=== PATIENT | male | born 1970 | race Caucasian/White ===

== ENCOUNTER 2018-11-30 23:33 | Emergency (ER) | payer SELFPAY ==
[~2018-11-30] VITALS: Ht 175.3 cm; Wt 79.4 kg
[2018-11-30 23:33] VITALS: BP 149/98
--- NOTE | 2018-11-30 23:35 | NUR ---
PT TO ER BB RA, PATIENT COMPLAINING OF ANXIETY. NO IMMEDIATE SIGNS OF DISTRESS NOTED. PT VITAL SIGNS STABLE. PT DENIES SI/HI. ADMITS TO USING OPI[facility] TODAY AND [facility]ETH YESTERDAY. PT ANSWERING ALL QUESTIONS APPROPRIATELY. WILL CONT TO MONITOR PT.
--- NOTE | 2018-12-01 00:05 | NUR ---
PT NO LONGER WANTING TO BE SEEN BY . Patient eloped from facility. ER notified.
== END 2018-12-01 00:15 | disposition left against medical advice (07) ==
LOC: ER 23:38
DX: F41.9 Anxiety disorder, unspecified (principal); M54.9 Dorsalgia, unspecified; G89.29 Other chronic pain; Z53.21 Procedure and treatment not carried out due to patient leaving prior to being seen by health care provider

== ENCOUNTER 2018-12-01 17:59 | Emergency (ER) | payer SELFPAY ==
[~2018-12-01] VITALS: Ht 175.3 cm; Wt 88.5 kg
[2018-12-01 18:18] VITALS: BP 160/100
--- NOTE | 2018-12-01 18:18 | NUR ---
PT MARLENE FROM [employer] OFFICE "HE'S BOTHERING PEOPLE OUTSIDE [employer] OFFICE" PT IS AAOX3, NOT IN RESPIRATORY DISTRESS, HOOKED TO MONITOR. KEPT RESTED AND COMFORTABLE, WILL CONTINUE TO MONITOR.
--- NOTE | 2018-12-01 18:27 | NUR ---
SEEN AND EXAMINED BY
--- NOTE | 2018-12-01 19:14 | NUR ---
Patient given written and verbal discharge instructions. Patient verbalizes understanding of instructions. Patient is ambulatory with steady gait. Refuses offer of care home placement. Patient given list of available shelters in surrounding area.
== END 2018-12-01 19:18 | disposition home or self-care (01) ==
LOC: ER 17:59
DX: E11.9 Type 2 diabetes mellitus without complications (principal); F10.20 Alcohol dependence, uncomplicated; I10 Essential (primary) hypertension; G89.29 Other chronic pain; Z60.2 Problems related to living alone; Y90.9 Presence of alcohol in blood, level not specified

== ENCOUNTER 2018-12-02 09:38 | Emergency (ER) | payer SELFPAY ==
[~2018-12-02] VITALS: Ht 180.3 cm; Wt 90.7 kg
--- NOTE | 2018-12-02 10:18 | NUR ---
ASSUME PT CARE. PT WALKED IN TO ED C/O BILAT FOOT PAIN FROM WALKING, COUGH AND CONGESTION W/ CHEST DISCOMFORT. PT IS ASKING FOR SHOES AND A REFFERAL FOR RETIREMENT. DENIES SI/HI STABLE VITALS. WILL CONTINUE TO MONITOR.
--- NOTE | 2018-12-02 11:01 | NUR ---
ELAN GREENBERG AT BED. PT PROVIDE WITH CLTHING AND SHOES
--- NOTE | 2018-12-02 11:06 | NUR ---
Social service consult requested by Dr. Byrd for homelessness and fdc placement. Pt. is a 47 year old male who came to ED complaining of cough and foot pain. ELAN met with pt. bedside. Pt. is alert and oriented x 4. Pt. was calm and cooperative with SW during the assessment. Pt. is ambulatory with a steady gait. Pt. is currently homeless and has been for the past two weeks. Pt. was living in [place] and moved to [facility] to " try something else." Pt. denies drug use. Pt. drinks approximately 2 forty ounces of beer per day and more if he has more money. Pt. is supported financially by his mother and sister. His sister Rut is his emergency contact and can be reached at . Pt. denies any suicidal and homicidal ideations and visual/auditory hallucinations at this time. ELAN contacted [facility] and spoke with Ezio who informed SW that they do have a 15 day bed available for the pt. and for the pt. to get there by 4:30PM. ELAN informed pt. about bed availability and pt. is willing to go. Pt. to be provided with TAP card for transportation to the [facility]. Pt. was also provided with shoes and jacket as requested. Homeless Waiver form placed in the chart and will be signed by the pt. upon discharge. Pt. was provided with a meal. ELAN updated ED CRN Gener regarding pt's discharge plan.
[2018-12-02] MEDS ORDERED: AZITHROMYCIN 250 MG TABLET ONE (12:17)
[2018-12-02] MEDS ORDERED: IBUPROFEN 600 MG TABLET PO ONE ×2 (12:17→12:30)
--- NOTE | 2018-12-02 12:24 | NUR ---
CALLED FOR A FOOD TRAY
[2018-12-02] MEDS ORDERED: AZITHROMYCIN 250 MG TABLET PO ONE (12:30)
--- NOTE | 2018-12-02 13:01 | NUR ---
MEDICALLY CLEARED. D/C IN STABLE CONDITION.
[2018-12-02 13:02] VITALS: BP 132/84
== END 2018-12-02 13:09 | disposition home or self-care (01) ==
LOC: ER 09:44
DX: J40 Bronchitis, not specified as acute or chronic (principal); I10 Essential (primary) hypertension; M54.9 Dorsalgia, unspecified; G89.29 Other chronic pain; F10.10 Alcohol abuse, uncomplicated; Z60.2 Problems related to living alone; Z59.0 Homelessness
CPT/HCPCS: 71045-TC

== ENCOUNTER 2024-04-23 10:00 | Emergency (ER) | payer MEDICAID, OTHER ==
[~2024-04-23] VITALS: Ht 177.8 cm; Wt 80.3 kg
[2024-04-23 10:09] VITALS: TEMP 97.9
[2024-04-23 10:28] LABS: BASOPHILS # (AUTO) 0.1 K/uL (0.0-0.2); BASOPHILS % (AUTO) 0.8 % (0.0-2.0); EOSINOPHILS % (AUTO) 0.3 % (0.0-6.0); HEMATOCRIT 39 % (39-51); HEMOGLOBIN 13.6 g/dL (13.5-17.5); LYMPHOCYTES # (AUTO) 2.7 K/uL (0.8-4.8); LYMPHOCYTES % (AUTO) 30.6 % (20.0-44.0); MEAN CORPUSCULAR HEMOGLOBIN 35 PG (26.0-33.0); MEAN CORPUSCULAR HGB CONC 35 g/dl (31.0-36.0); MEAN CORPUSCULAR VOLUME 101 fL (80-96); MONOCYTES # (AUTO) 0.8 K/uL (0.1-1.30); MONOCYTES % (AUTO) 9.3 % (2.0-12.0); NEUTROPHILS # (AUTO) 5.1 K/uL (1.8-8.9); PLATELET COUNT (AUTO) 310 K/uL (150-450); RED BLOOD CELL COUNT(AUTO) 3.91 MIL/uL (4.5-6.0); RED CELL DISTRIBUTION WIDTH 12.9 % (11.5-15.0); WHITE BLOOD COUNT (AUTO) 8.7 K/uL (4.3-11.0)
[2024-04-23 10:39] LABS: CALCIUM, SERUM 9.7 mg/dL (8.5-10.1); CARBON DIOXIDE 24 mmol/L (21-32); CHLORIDE 103 mmol/L (98-107); CREATININE 0.9 mg/dL (0.6-1.3); GLUCOSE 97 mg/dL (74-106); POTASSIUM 4.4 mmol/L (3.5-5.1); SODIUM SERUM 137 mmol/L (136-145); UREA NITROGEN, BLOOD 24 mg/dL (7-18)
[2024-04-23 10:43] LABS: APPEARANCE,URINE CLEAR (CLEAR); BILIRUBIN,URINE NEGATIVE (NEGATIVE); BLOOD, URINE NEGATIVE Ery/uL (NEGATIVE); COLOR,URINE YELLOW (YELLOW); KETONES,URINE NEGATIVE (NEGATIVE); LEUKOCYTE ESTERASE ,URINE NEGATIVE (NEGATIVE); NITRITE, URINE NEGATIVE (NEGATIVE); PROTEIN,URINE 1+ mg/dl (NEGATIVE); UGLUCOSE NEGATIVE (NEGATIVE); UROBILINOGEN,URINE 0.2 EU/dL (0.2)
[2024-04-23 10:44] LABS: ALANINE AMINOTRANSFERASE 141 U/L (12-78); ALCOHOL, BLOOD < 3 mg/dL (0-10); ALKALINE PHOSPHATASE 108 U/L (46-116); ASPARTATE AMINOTRANSFERASE 93 U/L (15-37); BILIRUBIN,DIRECT 0.2 mg/dL (0.0-0.2); BILIRUBIN,TOTAL 0.4 mg/dL (0.2-1.0); TOTAL PROTEIN, SERUM 8.7 g/dL (6.4-8.2)
[2024-04-23 10:51] LABS: BARBITURATE, URINE NEGATIVE (NEGATIVE); BENZODIAZEPINE, URINE NEGATIVE (NEGATIVE); CANNABINOID, URINE NEGATIVE (NEGATIVE); COCCAINE, URINE NEGATIVE (NEGATIVE); OPIATE, URINE NEGATIVE (NEGATIVE); PHENCYCLIDINE SCREEN,URINE NEGATIVE (NEGATIVE)
[2024-04-23 10:56] LABS: ACETAMINOPHEN <10 ug/ml (10-30); AMPHETAMINE, URINE POSITIVE (NEGATIVE); SALICYLATE 1.2 mg/dL (2.8-20.0)
[2024-04-23 10:59] LABS: ADD URINE CULTURE NO; BACTERIA,URINE Rare /HPF (None Seen); RBC,URINE 0-2 /HPF (0-2); SQUAMOUS EPITHELIAL CELL,UR Few /HPF (None Seen); WBC,URINE 0-2 /HPF (0-3)
[2024-04-23 11:00] VITALS: BP 155/98; O2SAT 99
== END 2024-04-23 13:15 ==
LOC: ER 10:05
DX: R45.851 Suicidal ideations (principal); F15.10 Other stimulant abuse, uncomplicated; I10 Essential (primary) hypertension; Z86.79 Personal history of other diseases of the circulatory system; Z87.39 Personal history of other diseases of the musculoskeletal system and connective tissue; F19.10 Other psychoactive substance abuse, uncomplicated; Z60.2 Problems related to living alone; Z20.822 Contact with and (suspected) exposure to COVID-19; Z59.00 Homelessness unspecified
CPT/HCPCS: 36415; 80048-TC; 80076-TC; 81001; 85025-TC; G0480

== ENCOUNTER 2025-02-14 10:08 | Emergency (ER) | payer OTHER ==
[~2025-02-14] VITALS: Ht 269.2 cm; Wt 75.7 kg
[2025-02-14] MEDS ORDERED: KETOROLAC TROMETHAMINE INJ 30 MG/ML VIAL ONE (10:20)
[2025-02-14] MEDS: KETOROLAC TROMETHAMINE INJ 30 MG/ML VIAL IM ONE (10:25)
[2025-02-14 11:32] LABS: APPEARANCE,URINE CLEAR (CLEAR); BLOOD, URINE Negative Ery/uL (NEGATIVE); LEUKOCYTE ESTERASE ,URINE Negative (NEGATIVE); NITRITE, URINE NEGATIVE (NEGATIVE); UGLUCOSE Negative (NEGATIVE)
[2025-02-14 11:51] LABS: ADD URINE CULTURE NO; SQUAMOUS EPITHELIAL CELL,UR Few /HPF (None Seen); URINE AMORPHOUS URATE Few /HPF (None Seen)
[2025-02-14 12:23] LABS: PLATELET COUNT (AUTO) 272 K/uL (150-450); RED BLOOD CELL COUNT(AUTO) 3.85 MIL/uL (4.5-6.0); RED CELL DISTRIBUTION WIDTH 14.6 % (11.5-15.0); WHITE BLOOD COUNT (AUTO) 7.0 K/uL (4.3-11.0)
[2025-02-14 12:40] LABS: LACTIC ACID 0.9 mmol/L (0.4-2.0)
[2025-02-14 12:46] LABS: CALCIUM, SERUM 9.0 mg/dL (8.5-10.1); CREATININE 0.7 mg/dL (0.6-1.3); SODIUM SERUM 133.0 mmol/L (136-145); UREA NITROGEN, BLOOD 19.0 mg/dL (7-18)
[2025-02-14 12:49] LABS: ASPARTATE AMINOTRANSFERASE 59.0 U/L (15-37); TOTAL PROTEIN, SERUM 8.2 g/dL (6.4-8.2)
[2025-02-14] MEDS ORDERED: CEPH-570 PO (13:07)
[2025-02-14] MEDS ORDERED: SULF1TAB48 PO (13:07)
[2025-02-14] MEDS ORDERED: SULFAMETH/TRIMETH 800/160 MG 1 UDTAB TABLET ONE (13:48)
[2025-02-14] MEDS ORDERED: CEPHALEXIN MONOHYDRATE 500 MG CAPSULE PO ONE (13:48)
[2025-02-14] MEDS: SULFAMETH/TRIMETH 800/160 MG 1 UDTAB TABLET PO ONE (13:49)
[2025-02-14] MEDS: CEPHALEXIN MONOHYDRATE 500 MG CAPSULE PO ONE (13:49)
[2025-02-14 13:54] VITALS: BP 150/99; TEMP 98.5; O2SAT 100
== END 2025-02-14 13:55 | disposition home or self-care (01) ==
LOC: ER 10:10
DX: M54.31 Sciatica, right side (principal); N49.2 Inflammatory disorders of scrotum; I11.9 Hypertensive heart disease without heart failure; F17.200 Nicotine dependence, unspecified, uncomplicated; J44.9 Chronic obstructive pulmonary disease, unspecified; Z86.73 Personal history of transient ischemic attack (TIA), and cerebral infarction without residual deficits; Z60.2 Problems related to living alone
CPT/HCPCS: 99285; 96372; 76870; 85025; 80048; 83605; 80076; 81001; 36415; J1885

== ENCOUNTER 2025-03-19 13:43 | Emergency (ER) | payer OTHER ==
[~2025-03-19] VITALS: Ht 172.7 cm; Wt 62.6 kg
[~2025-03-19 13:43] MED LIST: CEPH-570 PO; SULF1TAB48 PO
[2025-03-19 16:04] LABS: PLATELET COUNT (AUTO) 298 K/uL (150-450); RED BLOOD CELL COUNT(AUTO) 4.07 MIL/uL (4.5-6.0); RED CELL DISTRIBUTION WIDTH 14.4 % (11.5-15.0); WHITE BLOOD COUNT (AUTO) 8.3 K/uL (4.3-11.0)
[2025-03-19 16:15] LABS: CALCIUM, SERUM 9.3 mg/dL (8.5-10.1); CREATININE 0.7 mg/dL (0.6-1.3); SODIUM SERUM 141 mmol/L (136-145); UREA NITROGEN, BLOOD 22 mg/dL (7-18)
[2025-03-19 16:22] LABS: APPEARANCE,URINE CLEAR (CLEAR); BLOOD, URINE NEGATIVE Ery/uL (NEGATIVE); LEUKOCYTE ESTERASE ,URINE NEGATIVE (NEGATIVE); NITRITE, URINE NEGATIVE (NEGATIVE); UGLUCOSE NEGATIVE (NEGATIVE)
[2025-03-19 16:29] LABS: BARBITURATE, URINE NEGATIVE (NEGATIVE); BENZODIAZEPINE, URINE NEGATIVE (NEGATIVE); CANNABINOID, URINE NEGATIVE (NEGATIVE); COCCAINE, URINE NEGATIVE (NEGATIVE); OPIATE, URINE NEGATIVE (NEGATIVE)
[2025-03-19 16:30] LABS: ADD URINE CULTURE YES
[2025-03-19 16:31] LABS: AMPHETAMINE, URINE POSITIVE (NEGATIVE); SQUAMOUS EPITHELIAL CELL,UR Few /HPF (None Seen)
[2025-03-19 16:34] LABS: ALCOHOL, BLOOD 248 mg/dL (0-10); ASPARTATE AMINOTRANSFERASE 75 U/L (15-37); TOTAL PROTEIN, SERUM 9.0 g/dL (6.4-8.2)
[2025-03-19] MEDS ORDERED: ASPIRIN 81 MG TAB.CHEW ONE (19:30)
[2025-03-19] MEDS ORDERED: FAMOTIDINE (20 MG) 20 MG TABLET ONE (19:30)
[2025-03-19] MEDS: ASPIRIN 81 MG TAB.CHEW PO ONE (19:33)
[2025-03-19] MEDS: FAMOTIDINE (20 MG) 20 MG TABLET PO ONE (19:33)
[2025-03-19] MEDS: ACETAMINOPHEN 325 MG TABLET PO ONE (21:02)
[2025-03-19] MEDS ORDERED: ACETAMINOPHEN 325 MG TABLET ONE (21:02)
[2025-03-19] MEDS ORDERED: LIDOCAINE 5% (PATCH) 1 EA PATCH TP ONE (21:53)
[2025-03-19] MEDS ORDERED: METHOCARBAMOL (500MG) 500 MG TABLET ONE (21:54)
[2025-03-19] MEDS: METHOCARBAMOL (750MG) 750 MG TABLET PO ONE (21:59)
[2025-03-19] MEDS: LIDOCAINE 5% (PATCH) 1 EA PATCH TP ONE (21:59)
[2025-03-19 22:33] VITALS: BP 116/68; TEMP 98; O2SAT 100
== END 2025-03-19 22:33 | disposition home or self-care (01) ==
LOC: ER 13:51
DX: T40.411A Poisoning by fentanyl or fentanyl analogs, accidental (unintentional), initial encounter (principal); I11.9 Hypertensive heart disease without heart failure; F10.129 Alcohol abuse with intoxication, unspecified; F17.200 Nicotine dependence, unspecified, uncomplicated; J44.9 Chronic obstructive pulmonary disease, unspecified; G89.29 Other chronic pain; M54.50 Low back pain, unspecified; R10.20 Pelvic and perineal pain unspecified side; Y90.9 Presence of alcohol in blood, level not specified; Y92.89 Other specified places as the place of occurrence of the external cause
CPT/HCPCS: 36415; 71045-TC; 80048-TC; 80076-TC; 81001; 84132-TC; 84484-TC; 85025-TC; 87086-TC; G0480